=== PATIENT | male | born 1955 | race Two or more races ===

== ENCOUNTER → 2017-04-23 | Outpatient (CLI) | payer OTHER ==
[~2017-04-23] MED LIST: CARV25TA79 PO; CLOP75TA27 PO; LISI40TA9 PO; OMEP20CA9; SIMV-39 PO; flomax
--- NOTE | 2017-04-23 17:28 | RADRPT ---
PROCEDURE: Right knee radiographs. CLINICAL INDICATION: Right knee pain. TECHNIQUE: Four views. Weight bearing. Frontal, lateral, oblique, and patellar view. COMPARISON: No prior studies are available for comparison. FINDINGS: There is no fracture or dislocation. The soft tissues are normal. There are degenerative changes with osteophytes arising from all 3 joint compartment margins. There is medial joint compartment narrowing and subarticular sclerosis. There is no lytic or blastic lesion. There is no radiopaque foreign body. IMPRESSION: 1. Moderate degenerative changes of the right knee. 2. No acute abnormality. RPTAT: QQ .Morgan Frias MD, MD Date Time Electronically viewed and signed by .Morgan Frias MD, on 04/23/2017 17:28 .R/
== END | disposition home or self-care (01) ==
LOC: HKI 14:47
PROVIDERS: ATTEND Orthopaedic Surgery
DX: M25.561 Pain in right knee (principal)
CPT/HCPCS: 73564; Z7500; G0463

== ENCOUNTER 2017-09-16 18:24 | Emergency (ER) | payer OTHER ==
[~2017-09-16] VITALS: Ht 157.5 cm; Wt 116.3 kg
[2017-09-16 18:34] VITALS: Ht 157.5 cm; Wt 116.3 kg
[2017-09-16] MEDS ORDERED: SOD CHLORIDE 0.9% 500 ML IV STA (19:35)
--- NOTE | 2017-09-16 19:38 | ERD ---
ER Documentation Chief Complaint Chief Complaint Hematuria HPI The patient is a 62-year-old male with history of hypertension, prostatism, cardiac stent, who presents to the emergency department with complaint of hematuria. The patient reports that he was seen by his urologist 2 weeks ago, at which time he was placed on Ciprofloxacin for presumed urinary tract infection. He notes that today he has been experiencing increased urinary frequency, and upon using the restroom at 6:00 PM noted onset of gross hematuria. The hematuria has persisted, with passage of few small clots, and upon arrival to the ED gross hematuria is noted in the patient's urine sample. The patient denies any abdominal pain, flank pain, chest pain, palpitations or shortness of breath. Denies any penile pain or discharge. Denies fevers, sweats, chills, nausea, vomiting, diarrhea, black or bloody stools. Denies any other complaints at this time. The patient does admit to daily Plavix use. ROS All systems reviewed and are negative except as per history of present illness. Medications Home Meds Active Scripts Cephalexin* (Keflex*) 500 Mg Capsule, 500 MG PO BID for 10 Days, CAP Prov:AILEEN MORALES PA-C 09/16/17 Reported Medications Clopidogrel Bisulfate (Clopidogrel) 75 Mg Tablet, 75 MG PO DAILY, #30 TAB 06/28/16 [flomax] No Conflict Check 06/28/16 Lisinopril* (Lisinopril*) 40 Mg Tablet, 40 MG PO DAILY, #30 TAB 06/28/16 Carvedilol* (Carvedilol*) 25 Mg Tablet, 25 MG PO BID, #60 TAB 06/28/16 Simvastatin* (Simvastatin*) 80 Mg Tablet, 80 MG PO QHS, #30 TAB 06/28/16 Omeprazole* (Prilosec*) 20 Mg Capsule. 02/25/10 Allergies Allergies: Coded Allergies: No Known Allergy (Unverified , 09/16/17) PMhx/Soc History of Surgery: Yes (STENT X1) Anesthesia Reaction: No Hx Neurological Disorder: No Hx Respiratory Disorders: No Hx Cardiac Disorders: Yes (HTN) Hx Psychiatric Problems: No Hx Miscellaneous Medical Probl: No Hx Alcohol Use: No Hx Substance Use: No Hx Tobacco Use: No Smoking Status: Never smoker Physical Exam Vitals Vital Signs Date Time Temp Pulse Resp B/P Pulse Ox O2 Delivery O2 Flow Rate FiO2 09/16/17 21:44 98.1 83 18 152/81 98 Room Air 09/16/17 18:34 97.2 74 20 142/97 96 Physical Exam GENERAL: Well-developed, well-nourished, male, in no acute distress. Nontoxic. Well-appearing. HEENT: Head is normocephalic, atraumatic. No scleral pallor or icterus. Pupils equal, round and reactive to light. Conjunctiva pink. Moist mucous membranes. NECK: Supple. RESPIRATORY: Lungs are clear to auscultation bilaterally. Equal breath sounds. Normal expiratory effort. CARDIOVASCULAR: Regular rate and rhythm. S1 and S2 normal. GASTROINTESTINAL: Abdomen is soft, non-tender, and non-distended. No guarding, no rebound tenderness. Normal bowel sounds. FLANK: No CVA tenderness. No masses or swelling. BACK: No midline tenderness. EXTREMITIES: No clubbing, cyanosis, or edema. Normal skin perfusion. Moving all extremities. Muscle tone is normal. No focal swelling or erythema. NEUROLOGIC: The patient is alert, awake, and oriented x 3. No focal neurologic deficits. INTEGUMENT: Skin is intact. Warm and dry. No rashes, no petechiae present. Normal turgor. PSYCHIATRIC: Normal mood and mentation. Result Diagram: 09/16/17193409/16/171949 Results 24 hrs Laboratory Tests Test 09/16/17 19:35 09/16/17 19:40 09/16/17 19:50 White Blood Count 7.510^3/ul Red Blood Count 5.5310^6/ul Hemoglobin 14.5g/dl Hematocrit 45.7% Mean Corpuscular Volume 82.6fl Mean Corpuscular Hemoglobin 26.2pg Mean Corpuscular Hemoglobin Concent 31.7g/dl Red Cell Distribution Width 13.9% Platelet Count 89929^3/UL Mean Platelet Volume 10.5fl Neutrophils % 65.2% Lymphocytes % 24.1% Monocytes % 9.1% Eosinophils % 0.8% Basophils % 0.4% Nucleated Red Blood Cells % 0.0/100WBC Neutrophils # 4.910^3/ul Lymphocytes # 1.810^3/ul Monocytes # 0.710^3/ul Eosinophils # 0.110^3/ul Basophils # 0.010^3/ul Nucleated Red Blood Cells # 0.010^3/ul Urine Color RED Urine Clarity CLOUDY Urine pH 6.0 Urine Specific [place] 1.017 Urine Ketones NEGATIVEmg/dL Urine Nitrite NEGATIVEmg/dL Urine Bilirubin NEGATIVEmg/dL Urine Urobilinogen NEGATIVEmg/dL Urine Leukocyte Esterase TRACELeu/ul Urine Microscopic RBC > 182/HPF Urine Microscopic WBC > 182/HPF Urine Bacteria FEW/HPF Urine Yeast (Budding) MODERATE/HPF Urine Hemoglobin 3+mg/dL Urine Glucose NEGATIVEmg/dL Urine Total Protein 2+mg/dl Prothrombin Time 12.6Sec Prothrombin Time Ratio 1.0 INR International Normalized Ratio 0.94 Activated Partial Thromboplast Time 33.5Sec Sodium Level 147mmol/L Potassium Level 3.5mmol/L Chloride Level 106mmol/L Carbon Dioxide Level 28mmol/L Anion Gap 17 Blood Urea Nitrogen 16mg/dl Creatinine 0.85mg/dl Glucose Level 96mg/dl Calcium Level 9.6mg/dl Total Bilirubin 0.4mg/dl Direct Bilirubin 0.00mg/dl Indirect Bilirubin 0.4mg/dl Aspartate Amino Transf (AST/SGOT) 22IU/L Alanine Aminotransferase (ALT/SGPT) 38IU/L Alkaline Phosphatase 90IU/L Total Protein 7.7g/dl Albumin 4.5g/dl Globulin 3.20g/dl Albumin/Globulin Ratio 1.40 Lipase 123U/L Current Medications Medications (Trade) Dose Ordered Sig/Dustin Route PRN Reason Start Time Stop Time Status Last Admin Dose Admin Sodium Chloride 500 ml @ 500 mls/hr Q1H STAT IV 09/16/17 19:35 09/16/17 20:34 DC 09/16/17 19:58 Ceftriaxone Sodium (Rocephin) 50 ml @ 100 mls/hr ONCE ONCE IVPB 09/16/17 21:30 09/16/17 21:59 DC 09/16/17 21:31 Procedures/MDM EMERGENCY DEPARTMENT COURSE: The patient was stable throughout ED course. I kept the patient and/or family informed of laboratory and diagnostic imaging results throughout the ED course. The case was reviewed and discussed with Dr. Lopez, ED supervising physician, who agrees with the plan of care including labs, treatment, and advanced imaging as appropriate. Urinalysis with findings of likely hemorrhagic cystitis. Dr. Lopez recommends administration of Rocephin in the ED, and discharge home with Keflex. Urine culture sent. Additionally, CT imaging with evidence of large left renal cyst. Dr. Lopez recommends close urologic follow up. DIAGNOSTIC TESTS AND INTERPRETATION: PROCEDURE: CT Abdomen and Pelvis without contrast. CLINICAL INDICATION: Hematuria TECHNIQUE: CT scan of the abdomen and pelvis without contrast was performed. Coronal and sagittal reformatted images were obtained from the axial source images. Images were reviewed on a high-resolution PACS workstation. Total exam DLP is 1415.05 mGy-cm. CTDIvol is 23.39 mGy. One or more of the following dose reduction techniques were used: Automated exposure control, adjustment of the mA and/or kV according to patient size, use of iterative reconstruction technique. DICOM images are available. COMPARISON: None. FINDINGS: The lung bases are normal. There is no pleural effusion. The liver is normal in size and attenuation. There is no focal hepatic lesion. The gallbladder and bile ducts are normal. The spleen is normal in size. There is no focal splenic lesion. Both adrenals are normal with no enlargement or mass. The pancreas is unremarkable with no mass or evidence of pancreatitis. There is no solid renal mass, hydronephrosis, or calculus. There is a large cyst inferiorly in the left kidney measuring 8.8 cm in maximal dimension. There is no ureteral calculus on either side. The abdominal aorta is not dilated. There is calcification in the aorta consistent with atherosclerosis. There is no retroperitoneal lymphadenopathy. There is no pelvic lymphadenopathy or mass. The bladder and distal ureters are normal. The appendix is well seen and appears normal. The bowel and mesentery are normal. There is no free fluid or free gas. There are mild degenerative changes of the spine. The osseous structures are otherwise unremarkable with no fracture or lytic lesion. IMPRESSION: 1. Large cyst inferiorly in the left kidney measuring 8.8 cm. 2. Atherosclerosis. 3. Normal appendix. 4. No urinary tract calculus or hydronephrosis. 5. Mild degenerative changes of the spine. 6. Otherwise unremarkable CT scan of the abdomen and pelvis. .Morgan Frias MD, MD Date Time Electronically viewed and signed by .Morgan Frias MD, on 09/16/2017 20:41 MEDICAL DECISION MAKING: This is a 62-year-old male with history of hypertension , prostatism, cardiac stent, presenting to the Emergency Department with complaint of hematuria that began today. The patient also recently developed dysuria and urinary symptoms. He is on Ciprofloxacin, prescribed by his urologist. The patient had no significant abnormalities noted on physical examination, and vital signs were stable. The differential diagnosis includes, but is not limited to, cystitis, urinary calculi, renal cell carcinoma, benign prostatic hyperplasia, neoplastic disease, transient unexplained hematuria, acute glomerulonephritis., polycystic kidney disease, anticoagulant use, renal infarction, paroxysmal nocturnal hemoglobinuria, hemolysis. No significant laboratory abnormalities were noted. Hemoglobin and hematocrit are normal, no severe anemia. BUN and creatinine are normal, no prerenal azotemia or acute kidney injury. PT/INR normal. No coagulopathy. Urinalysis performed revealed 3+ urine hemoglobin, trace urine leukocyte esterase, > 182 WBC, > 182 RBC. Findings concerning for hemorrhagic cystitis. Urine culture sent. Rocephin administered. Patient has no had any fevers, chills, symptomatic symptoms or flank/CVA tenderness, and therefore I doubt pyelonephritis. Presentation not consistent with that of post-streptococcal glomerulonephritis, nephropathy or paroxysmal nocturnal hemoglobinuria. CT abdomen and pelvis was performed, which revealed a large cyst inferiorly in the left kidney measuring 8.8 cm. Otherwise , no urinary tract calculus or hydronephrosis. After rest and administration of fluids and Rocephin, the patient reports no new complaints, and remains stable with no signs of acute distress. At this time, the patient is in stable condition and therefore can be discharged home with prescription for Keflex and given strict return precautions for signs of deteriorating or worsening condition. He is provided a copy of all results from today's visit, including a CD of the patient's CT imaging. He is advised to follow up with his urologist tomorrow for re- evaluation and further management, or return to the ER sooner for any new or worsening symptoms. I shared my medical decision making and plan with the patient and daughter at length and in great detail, and they verbally understand and agree with the plan for further observation and care as an outpatient. At the time of discharge, all questions were answered. Departure Diagnosis: Primary Impression: Hemorrhagic cystitis Additional Impression: Cyst of left kidney Condition: Stable Patient Instructions: Hematuria, Urinary Tract Infections in Men Additional Instructions: Follow up with your urologist TOMORROW for further evaluation and management. Please bring a copy of all results. Return to the ED for any new or worsening symptoms. AILEEN MORALES PA-C Sep 16, 2017 19:38
[2017-09-16 20:15] LABS: BASOPHILS % 0.4 % (0.0-2.0); EOSINOPHILS # 0.1 10^3/ul (0.0-0.5); EOSINOPHILS % 0.8 % (0.0-7.0); HEMATOCRIT 45.7 % (42.0-52.0); HEMOGLOBIN 14.5 g/dl (14.0-18.0); LYMPHOCYTES # 1.8 10^3/ul (0.8-2.9); LYMPHOCYTES % 24.1 % (15.0-51.0); MEAN CORPUSCULAR HEMOGLOBIN 26.2 pg (29.0-33.0); MEAN CORPUSCULAR HGB CONC 31.7 g/dl (32.0-37.0); MEAN CORPUSCULAR VOLUME 82.6 fl (82.0-101.0); MEAN PLATELET VOLUME 10.5 fl (7.4-10.4); MONOCYTE # 0.7 10^3/ul (0.3-0.9); MONOCYTES % 9.1 % (0.0-11.0); NEUTROPHIL # 4.9 10^3/ul (1.6-7.5); NEUTROPHILS % 65.2 % (39.0-77.0); PLATELET COUNT 143 10^3/UL (140-415); RED BLOOD COUNT 5.53 10^6/ul (4.70-6.10); RED CELL DISTRIBUTION WIDTH 13.9 % (11.5-14.5); WHITE BLOOD COUNT 7.5 10^3/ul (4.8-10.8)
[2017-09-16 20:36] LABS: PARTIAL THROMBOPLASTIN TIME 33.5 Sec (25.0-35.0)
[2017-09-16 20:39] LABS: ALBUMIN 4.5 g/dl (3.3-4.9); ALBUMIN/GLOBULIN RATIO 1.4; BILIRUBIN,INDIRECT 0.4 mg/dl (0-1.1); BILIRUBIN,TOTAL 0.4 mg/dl (0.2-1.3); CALCIUM 9.6 mg/dl (8.4-10.2); CREATININE 0.85 mg/dl (0.61-1.24); POTASSIUM 3.5 mmol/L (3.5-5.1); TOTAL PROTEIN 7.7 g/dl (6.1-8.1)
--- NOTE | 2017-09-16 20:41 | RADRPT ---
PROCEDURE: CT Abdomen and Pelvis without contrast. CLINICAL INDICATION: Abdominal and pelvic pain. TECHNIQUE: CT scan of the abdomen and pelvis without contrast was performed. Coronal and sagittal reformatted images were obtained from the axial source images. Images were reviewed on a high-resolu [employer] PACS workstation. Total exam DLP is 1415.05 mGy-cm. CTDIvol is 23.39 mGy. One or more of the following dose reduction techniques were used: Automated exposure control, adjustment of the mA and/ or kV according to patient size, use of iterative reconstruction technique. DICOM images are availab le. COMPARISON: None. FINDINGS: The lung bases are normal. There is no pleural effusion. The liver is normal in size and attenuation. There is no focal hepatic lesion. The gallbladder and bile ducts are normal. The spleen is normal in size. There is no focal splenic lesion. Both adrenals are normal with no enlargement or mass. The pancreas is unremarkable with no mass or evidence of pancreatitis. There is no solid renal mass, hydronephrosis, or calculus. There is a large cyst inferiorly in the l eft kidney measuring 8.8 cm in maximal dimension. There is no ureteral calculus on either side. The abdominal aorta is not dilated. There is calcification in the aorta consistent with atherosclero sis. There is no retroperitoneal lymphadenopathy. There is no pelvic lymphadenopathy or mass. The bladder and distal ureters are normal. The appendix is well seen and appears normal. The bowel and mesentery are normal. There is no free fluid or free gas. There are mild degenerative changes of the spine. The osseous structures are otherwise unremarkable with no fracture or lytic lesion. IMPRESSION: 1. Large cyst inferiorly in the left kidney measuring 8.8 cm. 2. Atherosclerosis. 3. Normal appendix. 4. No urinary tract calculus or hydronephrosis. 5. Mild degenerative changes of the spine. 6. Otherwise unremarkable CT scan of the abdomen and pelvis. RPTAT: QQ .Morgan Frias MD, Date Time Electronically viewed and signed by .Morgan Frias MD, on 09/16/2017 20:41 .R/
[2017-09-16 20:56] LABS: INR 0.94; PROTIME 12.6 Sec (12.2-14.2)
[2017-09-16 21:01] LABS: ADD UMIC YES; UR ASCORBIC ACID NEGATIVE (NEGATIVE); UR BACTERIA FEW /HPF (NONE SEEN); UR BILIRUBIN (Dip) NEGATIVE (NEGATIVE); UR BLOOD (Dip) 3+ mg/dL (NEGATIVE); UR BUDDING YEAST MODERATE /HPF (NONE SEEN); UR CLARITY CLOUDY (CLEAR); UR COLOR RED (YELLOW); UR GLUCOSE (Dip) NEGATIVE (NEGATIVE); UR KETONES (Dip) NEGATIVE (NEGATIVE); UR LEUKOCYTE ESTERASE (Dip) TRACE Leu/ul (NEGATIVE); UR NITRITE (Dip) NEGATIVE (NEGATIVE); UR RBC > 182 /HPF (0-5); UR SPECIFIC GRAVITY (Dip) 1.017 (1.003-1.030); UR TOTAL PROTEIN (Dip) 2+ mg/dl (NEGATIVE); UR UROBILINOGEN (Dip) NEGATIVE (NEGATIVE)
[2017-09-16] MEDS ORDERED: CEPH-443 PO (21:18)
[2017-09-16] MEDS ORDERED: CEFTRIAXONE 1 GM/50 ML (PMX) 50 ML IVPB ONE (21:30)
[2017-09-16 21:44] VITALS: BP 152/81; PULSE 83; RESP 18; TEMP 98.1
[2017-09-18] MEDS ORDERED: NITR-58 PO (17:36)
[2017-09-19] MEDS ORDERED: NITR-58 PO (11:27)
== END 2017-09-16 21:45 | disposition home or self-care (01) ==
LOC: FTE 18:24
DX: N30.01 Acute cystitis with hematuria (principal); N28.1 Cyst of kidney, acquired; I10 Essential (primary) hypertension; Z98.61 Coronary angioplasty status
CPT/HCPCS: 36415; 74176; 80053; 81001; 83690; 85025; 85610; 85730; 87086; 96374; J0696; J7040; Z7502